=== PATIENT | male | born 1965 | race American Indian/Alaskan Native ===

== ENCOUNTER 2020-03-16 11:57 | Emergency (ER) | payer MEDICAID ==
--- NOTE | 2020-03-16 12:20 | Emergency Department Report ---
Blank Doc - Documentation Documentation: 54-year-old male that presents with uncontrolled HTN with headaches. Has not been taking medications for HTN. This initial assessment/diagnostic orders/clinical plan/treatment(s) is/are subject to change based on patient's health status, clinical progression and re-assessment by fellow clinical providers in the ED. Further treatment and workup at subsequent clinical providers discretion. Patient/guardians urged not to elope from the ED as their condition may be serious if not clinically assessed and managed. Initial orders include: 1- Patient sent to [facility] for further evaluation and treatment 2- labs-r/o HTN emergency 3- CT head
--- NOTE | 2020-03-16 13:18 | Cat Scan Report ---
CT head/brain wo con INDICATION / CLINICAL INFORMATION: 54 years Male; headache. TECHNIQUE: Routine CT head without contrast. All CT scans at this location are performed using CT dos e reduction for ALARA by means of automated exposure control. COMPARISON: None. FINDINGS: BRAIN / INTRACRANIAL CONTENTS: Small lacunar infarct is suggested in the globus pallidus region on th e [id number] without diffusion imaging by MRI. Small lacunar infarct is seen in the left thalamic region, as well the posterior right putamen. Otherwise, no acute hemorrhage, mass effect, midline shift, hydrocephalus, or acute, large territoria l infarct. No chronic infarct or atrophy appreciated. No significant white matter abnormality. CRANIOCERVICAL JUNCTION: No significant abnormality. ORBITS: No significant abnormality of visualized orbits. SINUSES / MASTOIDS: No significant abnormality in the visualized paranasal sinuses or mastoid air sophia ls. ADDITIONAL FINDINGS: Metallic object is seen in the left posterolateral nasopharyngeal/oropharyngeal region-please clinically correlate. IMPRESSION: 1. Small lacunar infarcts suggested in the angle capsular regions as described above. Follow-up with diffusion imaging by MRI, as clinically warranted. 2. Otherwise, no focal mass, hemorrhage, hydrocephalus, or acute, large territorial infarct. Signer Name: Jay Diamond MD, III Signed: 03/16/2020 1:13 PM Workstation Name: [id number]
[2020-03-16 13:26] LABS: Basophils # (Auto) 0.1 K/mm3 (0.0-0.1); Hematocrit 37.3 % (35.5-45.6); Hemoglobin 12.6 gm/dl (11.8-15.2); Lymphocytes # (Auto) 2.1 K/mm3 (1.2-5.4); Lymphocytes % (Auto) 34.8 % (13.4-35.0); Mean Corpuscular HGB Conc 34 % (32-34); Mean Corpuscular Volume 93 fl (84-94); Monocytes % (Auto) 11.2 % (0.0-7.3); Platelet Count 315 K/mm3 (140-440); Red Cell Distribution Width 13.8 % (13.2-15.2)
[2020-03-16 13:30] LABS: Red Blood Count 4.04 M/mm3 (3.65-5.03)
[2020-03-16] MEDS ORDERED: LISINOPRIL 20 MG TAB PO ONE ×2 (13:36→15:28)
--- NOTE | 2020-03-16 13:47 | XRay Report ---
CHEST 1 VIEW INDICATION: Chest Pain. COMPARISON: None FINDINGS: Support devices: None. Heart: Within normal limits. Lungs/Pleura: There is mild linear scarring in both upper lobes. Otherwise the lungs are clear. No ev idence for pneumonia, pleural fluid or pneumothorax. Additional findings: None. IMPRESSION: No acute findings. Signer Name: Walker Mcmullen Jr, MD Signed: 03/16/2020 1:42 PM Workstation Name: [id number]
[2020-03-16 14:00] LABS: Alanine Aminotransferase 7 units/L (7-56); Albumin 4.3 g/dL (3.9-5); BUN/Creatinine Ratio 14; Blood Urea Nitrogen 20 mg/dL (9-20); Calcium 9.4 mg/dL (8.4-10.2); Hemolysis Index 9
--- NOTE | 2020-03-16 15:35 | Emergency Department Report ---
ED General Adult HPI - General Chief complaint: Headache Stated complaint: HBP PUI?: No Time Seen by Provider: 03/16/20 12:19 Source: patient Mode of arrival: Ambulatory Limitations: No Limitations - History of Present Illness Initial comments: CC: "My blood pressure was too high." HPI: This is a 54-year-old male with history of hypertension, diabetes mellitus, tobacco dependence who presents with elevated blood pressure. He was attempting to obtain a new primary care physician today. During routine blood pressure check, blood pressure was "too high". He has had history of frequent headaches. He denies headache at this time. He denies blurry vision. Denies paralysis paresthesias. He denies vomiting. He is in a normal state of health. He was just trying to initiate medical care. He has been noncompliant with medication for quite some time. He has been disabled since . -: Gradual, month(s) (Several months) Location: head Severity scale (0 -10): 0 Quality: dull Consistency: now resolved Improves with: none Worsens with: none Associated Symptoms: other (Elevated blood pressure) - Related Data Home Medications Medication Instructions Recorded Confirmed Last Taken Insulin Aspart (Nf) [Novolog 07/13/13 07/13/13 06/02/13 Flexpen] Insulin Glargine,Hum.rec.anlog 07/13/13 07/13/13 06/02/13 [Lantus Solostar] lisinopriL [Zestril TAB] 07/13/13 07/13/13 06/02/13 Previous Rx's Medication Instructions Recorded Last Taken Type Cyclobenzaprine HCl [Flexeril] 10 mg PO BID #15 tablet 07/14/13 Unknown Rx Gabapentin 300 mg PO QDAY #15 capsule 07/14/13 Unknown Rx Lisinopril/Hydrochlorothiazide 1 tab PO QDAY #15 tablet 07/14/13 Unknown Rx [Zestoretic 20-12.5 mg] Lisinopril/Hydrochlorothiazide 1 tab PO QDAY #30 tab 03/16/20 Unknown Rx [Zestoretic 20-25 mg] Allergies Allergy/AdvReac Type Severity Reaction Status Date / Time No Known Allergies Allergy Verified 07/14/13 03:32 ED Review of Systems ROS: Stated complaint: HBP Other details as noted in HPI Comment: All other systems reviewed and negative Constitutional: denies: fever, malaise Respiratory: denies: cough, shortness of breath Gastrointestinal: denies: abdominal pain, nausea, vomiting Neurological: headache. denies: numbness, paresthesias, abnormal gait ED Past Medical Hx - Past Medical History Previous Medical History?: Yes Hx Hypertension: Yes Hx Diabetes: Yes - Family History Family history: hypertension - Social History Smoking Status: Current Every Day Smoker Substance Use Type: Alcohol - Medications Home Medications: Home Medications Medication Instructions Recorded Confirmed Last Taken Type Insulin Aspart (Nf) [Novolog 07/13/13 07/13/13 06/02/13 History Flexpen] Insulin Glargine,Hum.rec.anlog 07/13/13 07/13/13 06/02/13 History [Lantus Solostar] lisinopriL [Zestril TAB] 07/13/13 07/13/13 06/02/13 History Cyclobenzaprine HCl [Flexeril] 10 mg PO BID #15 tablet 07/14/13 Unknown Rx Gabapentin 300 mg PO QDAY #15 capsule 07/14/13 Unknown Rx Lisinopril/Hydrochlorothiazide 1 tab PO QDAY #15 tablet 07/14/13 Unknown Rx [Zestoretic 20-12.5 mg] Lisinopril/Hydrochlorothiazide 1 tab PO QDAY #30 tab 03/16/20 Unknown Rx [Zestoretic 20-25 mg] ED Physical Exam - General Limitations: No Limitations General appearance: alert, in no apparent distress, other (Well-appearing no acute distress ambulatory without difficulty) - Head Head exam: Present: atraumatic, normocephalic - Eye Eye exam: Present: normal appearance - ENT ENT exam: Present: mucous membranes moist - Neck Neck exam: Present: normal inspection, full ROM - Respiratory Respiratory exam: Present: normal lung sounds bilaterally. Absent: respiratory distress, wheezes, rales, rhonchi - Cardiovascular Cardiovascular Exam: Present: regular rate, normal rhythm, normal heart sounds. Absent: systolic murmur, diastolic murmur, rubs, gallop - GI/Abdominal GI/Abdominal exam: Present: soft, normal bowel sounds. Absent: distended, tenderness, guarding, rebound - Rectal Rectal exam: Present: deferred - Extremities Exam Extremities exam: Present: normal inspection - Neurological Exam Neurological exam: Present: alert, oriented X3, normal gait - Psychiatric Psychiatric exam: Present: normal affect, normal mood - Skin Skin exam: Present: warm, dry, intact, normal color. Absent: rash ED Course Vital Signs 03/16/20 03/16/20 03/16/20 12:10 13:34 13:42 Temperature 98 F Pulse Rate 64 56 L Respiratory 18 18 Rate Blood Pressure 232/112 Blood Pressure 232/119 [Right] O2 Sat by Pulse 98 100 Oximetry 03/16/20 14:04 Temperature Pulse Rate Respiratory Rate Blood Pressure 232/112 Blood Pressure [Right] O2 Sat by Pulse Oximetry ED Medical Decision Making - Lab Data Result diagrams: 03/16/20 12:48 03/16/20 12:48 Laboratory Results - last 24 hr 03/16/20 03/16/20 12:48 12:48 WBC 6.2 RBC 4.04 Hgb 12.6 Hct 37.3 MCV 93 MCH 31 MCHC 34 RDW 13.8 Plt Count 315 Lymph % (Auto) 34.8 [place] % (Auto) 11.2 H Baso % (Auto) [employer] Lymph # 2.1 Baso # 0.1 Seg Neutrophils % 48.7 Seg Neutrophils # 3.0 Sodium 140 Potassium 4.5 Chloride 102.4 Carbon Dioxide 24 Anion Gap 18 BUN 20 Creatinine 1.4 H Estimated GFR > 60 BUN/Creatinine Ratio 14 Glucose 109 H Calcium 9.4 Total Bilirubin 0.30 AST 14 ALT 7 Alkaline Phosphatase 84 Total Protein 7.1 Albumin 4.3 Albumin/Globulin Ratio 1.5 - Radiology Data Radiology results: report reviewed CT head Without contrast small lacunar infarcts, otherwise no focal mass hemorrhage hydrocephalus or acute large territorial infarct Chest radiograph 1 view: No acute findings, mild linear scarring in both upper lobes - Medical Decision Making This is a 54-year-old male with history of hypertension diabetes mellitus who presents with asymptomatic hypertensive urgency. No evidence of endorgan damage. CBC chemistry unremarkable. After 10 mg IV labetalol, 20 mg of lisinopril, blood pressure decreased from 232/119 to 199/101. Further blood pressure decrease is not clinically indicated. I have prescribed lisinopril hydrochlorothiazide. I have provided referral to our primary outpatient medicine physician. Critical care attestation.: If time is entered above; I have spent that time in minutes in the direct care of this critically ill patient, excluding procedure time. ED Disposition Clinical Impression: Hypertensive urgency Disposition: [id number] TO HOME OR SELFCARE Is pt being admited?: No Does the pt Need Aspirin: No Condition: Stable Instructions: Hypertension (ED) Prescriptions: Lisinopril/Hydrochlorothiazide [Zestoretic 20-25 mg] 1 tab PO QDAY #30 tab Referrals: MERVAT DUENAS MD [Staff Physician] - 3-5 Days
[2020-03-16 16:24] VITALS: BP 213/106
== END 2020-03-16 16:36 | disposition home or self-care (01) ==
LOC: ED 11:57
DX: I16.0 Hypertensive urgency (principal); I10 Essential (primary) hypertension; E11.9 Type 2 diabetes mellitus without complications; F17.200 Nicotine dependence, unspecified, uncomplicated; Z79.899 Other long term (current) drug therapy
CPT/HCPCS: 36415; 70450; 71045; 80053; 85025; 96374